=== PATIENT | female | born 1955 | race Caucasian/White ===

== ENCOUNTER → 2017-04-25 | Outpatient (CLI) | payer BC ==
--- NOTE | 2017-04-25 12:26 | XR ---
EXAMINATION TYPE: XR chest 2V DATE OF EXAM: 04/25/2017 COMPARISON: None HISTORY: 61-year-old female with cough TECHNIQUE: Frontal and lateral views FINDINGS: The cardiomediastinal silhouette, aorta, and pulmonary vasculature are within normal limits. There is mild hyperinflation and mild interstitial prominence in the lower lungs. Lungs and pleural spaces ot herwise clear. IMPRESSION: Possible underlying COPD. Clinically correlate. Otherwise, no acute cardiopulmonary process.
== END | disposition home or self-care (01) ==
LOC: RADXRYALE 10:35
PROVIDERS: ATTEND Internal Medicine
DX: R05 Cough (principal)
CPT/HCPCS: 71020

== ENCOUNTER → 2017-04-30 | Outpatient (CLI) | payer BC ==
--- NOTE | 2017-05-01 09:24 | MM ---
Reason for exam: screening (asymptomatic). Last mammogram was performed 1 year ago. History: Patient is postmenopausal. Took estrogen for 7 years beginning at age 42. Took progesterone for 6 months beginning at age 52. Physical Findings: A clinical breast exam by your physician is recommended on an annual basis and results should be correlated with mammographic findings. MG Screening Mammo w CAD Bilateral CC and MLO view(s) were taken. Prior study comparison: April 29, 2016, bilateral MG screening mammo w CAD. The breast tissue is almost entirely fat. No significant changes when compared with prior studies. ASSESSMENT: Negative, BI-RAD 1 RECOMMENDATION: Routine screening mammogram of both breasts in 1 year.
== END | disposition home or self-care (01) ==
LOC: RADMAMWWP 08:19
PROVIDERS: ATTEND Obstetrics & Gynecology
DX: Z12.31 Encounter for screening mammogram for malignant neoplasm of breast (principal)

== ENCOUNTER → 2018-05-07 | Outpatient (CLI) | payer MEDICARE ==
--- NOTE | 2018-05-13 09:05 | MM ---
Reason for exam: screening (asymptomatic). Last mammogram was performed 1 year ago. History: Patient is postmenopausal. Took estrogen for 7 years beginning at age 42. Took progesterone for 6 months beginning at age 52. Physical Findings: A clinical breast exam by your physician is recommended on an annual basis and results should be correlated with mammographic findings. MG Screening Mammo w CAD Bilateral CC and MLO view(s) were taken. Prior study comparison: April 30, 2017, bilateral MG screening mammo w CAD. April 29, 2016, bilateral MG screening mammo w CAD. There are scattered fibroglandular densities. No suspicious abnormality. No significant changes when compared with prior studies. ASSESSMENT: Negative, BI-RAD 1 RECOMMENDATION: Routine screening mammogram of both breasts in 1 year.
== END | disposition home or self-care (01) ==
LOC: RADMAMWWP 06:59
PROVIDERS: ATTEND Obstetrics & Gynecology
DX: Z12.31 Encounter for screening mammogram for malignant neoplasm of breast (principal)
CPT/HCPCS: 77067

== ENCOUNTER → 2019-06-22 | Outpatient (CLI) | payer MEDICARE ==
--- NOTE | 2019-06-22 10:23 | MM ---
Reason for exam: screening (asymptomatic). Last mammogram was performed 1 year and 1 month ago. History: Patient is postmenopausal. Took estrogen for 7 years beginning at age 42. Took progesterone for 6 months beginning at age 52. Physical Findings: A clinical breast exam by your physician is recommended on an annual basis and results should be correlated with mammographic findings. MG 3D Screening Mammo W/Cad Bilateral CC and MLO view(s) were taken. Prior study comparison: May 07, 2018, bilateral MG screening mammo w CAD. April 30, 2017, bilateral MG screening mammo w CAD. There are scattered fibroglandular densities. No suspicious abnormality. No significant changes when compared with prior studies. ASSESSMENT: Negative, BI-RAD 1 RECOMMENDATION: Routine screening mammogram of both breasts in 1 year.
== END | disposition home or self-care (01) ==
LOC: RADMAMWWP 06:52
PROVIDERS: ATTEND Internal Medicine
DX: Z12.31 Encounter for screening mammogram for malignant neoplasm of breast (principal)
CPT/HCPCS: 77063; 77067

== ENCOUNTER → 2020-07-26 | Outpatient (CLI) | payer MEDICARE | END | disposition home or self-care (01) | LOC: LABWHC1 14:51 | PROVIDERS: ATTEND Internal Medicine | DX: Z20.828 Contact with and (suspected) exposure to other viral communicable diseases (principal) | CPT/HCPCS: U0003; C9803 ==

== ENCOUNTER → 2020-08-22 | Outpatient (CLI) | payer MEDICARE ==
--- NOTE | 2020-08-23 10:30 | MM ---
Reason for exam: screening (asymptomatic). Last mammogram was performed 1 year and 2 months ago. History: Patient is postmenopausal. Took estrogen for 7 years beginning at age 42. Took progesterone for 6 months beginning at age 52. Physical Findings: A clinical breast exam by your physician is recommended on an annual basis and results should be correlated with mammographic findings. MG 3D Screening Mammo W/Cad Bilateral CC and MLO view(s) were taken. Prior study comparison: June 22, 2019, bilateral MG 3d screening mammo w/cad. May 07, 2018, bilateral MG screening mammo w CAD. There are scattered fibroglandular densities. There is no discrete abnormality. No significant changes when compared with prior studies. ASSESSMENT: Negative, BI-RAD 1 RECOMMENDATION: Routine screening mammogram of both breasts in 1 year.
== END | disposition home or self-care (01) ==
LOC: RADMAMWWP 07:16
PROVIDERS: ATTEND Internal Medicine
DX: Z12.31 Encounter for screening mammogram for malignant neoplasm of breast (principal)
CPT/HCPCS: 77063; 77067

== ENCOUNTER → 2021-08-27 | Outpatient (CLI) | payer MEDICARE ==
--- NOTE | 2021-08-29 10:00 | MM ---
Reason for exam: screening (asymptomatic). Last mammogram was performed 1 year ago. History: Patient is postmenopausal. Took estrogen for 7 years beginning at age 42. Took progesterone for 6 months beginning at age 52. Physical Findings: A clinical breast exam by your physician is recommended on an annual basis and results should be correlated with mammographic findings. MG Screening Mammo w CAD Bilateral CC and MLO view(s) were taken. Prior study comparison: August 22, 2020, bilateral MG 3d screening mammo w/cad. June 22, 2019, bilateral MG 3d screening mammo w/cad. There are scattered fibroglandular densities. Benign appearing calcifications in the left breast. No significant changes when compared with prior studies. ASSESSMENT: Benign, BI-RAD 2 RECOMMENDATION: Routine screening mammogram of both breasts in 1 year.
== END | disposition home or self-care (01) ==
LOC: RADMAMWWP 08:01
PROVIDERS: ATTEND Internal Medicine
DX: Z12.31 Encounter for screening mammogram for malignant neoplasm of breast (principal); Z78.0 Asymptomatic menopausal state
CPT/HCPCS: 77067

== ENCOUNTER → 2022-08-30 | Outpatient (CLI) | payer MEDICARE ==
--- NOTE | 2022-09-02 10:40 | MM ---
Reason for Exam: Screening (asymptomatic). Last screening mammogram was performed 12 month(s) ago. Patient History: Menarche at age 10. First Full-Term at age 19. Hysterectomy at age 26. Postmenopausal. Estrogen for 7 years from age 42 until age 49. Progesterone for 6 months starting at age 52. Risk Values: [place] 5 year model risk: 1.5%. NCI Lifetime model risk: 4.8%. Prior Study Comparison: 04/29/2016 Bilateral Screening Mammogram, [facility]. 04/30/2017 Bilateral Screening Mammogram, [facility]. 05/07/2018 Bilateral Screening Mammogram, [facility]. 06/22/2019 Bilateral Screening Mammogram, [facility]. 08/22/2020 Bilateral Screening Mammogram, [facility]. 08/27/2021 Bilateral Screening Mammogram, [facility]. Tissue Density: The breast tissue is almost entirely fat. Findings: Analyzed By CAD. There is no suspicious group of microcalcifications or new suspicious mass in either breast. Overall Assessment: Negative, BI-RAD 1 Management: Screening Mammogram of both breasts in 1 year. A clinical breast exam by your physician is recommended on an annual basis and results should be correlated with mammographic findings. [facility] will attempt to contact patient to return for supplemental views and ultrasound if indicated. Electronically signed and approved by: Salvatore Dasilva DO
== END | disposition home or self-care (01) ==
LOC: RADMAMWWP 07:39
PROVIDERS: ATTEND Internal Medicine
DX: Z12.31 Encounter for screening mammogram for malignant neoplasm of breast (principal); Z78.0 Asymptomatic menopausal state
CPT/HCPCS: 77063; 77067

== ENCOUNTER → 2023-09-03 | Outpatient (CLI) | payer MEDICARE ==
--- NOTE | 2023-09-03 15:38 | BD ---
EXAMINATION TYPE: Axial Bone Density DATE OF EXAM: 09/03/2023 CLINICAL HISTORY: 68 years old Female. ICD-10 CODE: N95.8 OTHER SPECIFIED MENOPAUSAL Height: 66" Weight: 136.9lbs FRAX RISK QUESTIONS: Alcohol (3 or more units per day): No Family History (Parent hip fracture): No Glucocorticoids (More than 3mos): No (Ex: prednisone, prednisolone, methylprednisolone, dexamethasone, and hydrocortisone). History of Fracture in Adulthood: Yes, ankle Secondary Osteoporosis: 1. Type 1 Diabetes: No 2. Hyperthyroidism: No 3. Menopause before 45: Yes, 26 4. Malnutrition: No 5. Chronic liver disease: No Rheumatoid Arthritis: No Current Tobacco Use: No RISK FACTORS HISTORY OF: Hip Fracture (Right/Left): No Spine Fracture: No History of Wrist Fracture: No Surgery to Spine/Hip(right/left)/Wrist (right/left): No Family History of Osteoporosis: Yes, mother Active: Yes Diet low in dairy products/other sources of calcium: Yes Postmenopausal woman: Yes Lost more than 2 inches in height since high school: Yes Frequent falls: No Poor Health: No Hyperparathyroidism: No Adrenal Insufficiency: No MEDICATIONS: Prednisone or other steroids: No Thyroid Medications: No Osteoporosis Medications: No Additional Medications: Celexa, Statin for cholesterol, vitamin D, multivitamin daily Additional History: None EXAM MEASUREMENTS: Bone mineral densitometry was performed using the [employer]. Bone mineral density as measured about the Lumbar spine is: ----- L1-L4(G/cm2): 1.227 T Score Values are as follows: ----- L1: 0.9 ----- L2: -0.9 ----- L3: 1.0 ----- L4: 0.3 ----- L1-L4: 0.4 Z Score Values are as follows: ----- L1: 2.7 ----- L2: 0.9 ----- L3: 2.8 ----- L4: 2.1 ----- L1-L4: 2.2 Baseline @MPH Bone mineral density about the R hip (g/cm2): 0.809 Bone mineral density about the L hip (g/cm2): 0.814 T Score values are as follows: -----R Neck: -1.9 -----L Neck: -1.7 -----R Total: -1.6 -----L Total: -1.5 Z Score values are as follows: -----R Neck: -0.2 -----L Neck: 0.1 -----R Total: 0.0 -----L Total: 0.0 Baseline @MPH FRAX%s: The graph provided illustrates a 17.1% chance for a major osteoporotic fx and a 3.3% chance f or the hips probability for fx in 10 years time. IMPRESSION: Osteopenia (T Score between -2.5 and -1). There is slightly increased risk of fracture and the patient may be considered for treatment. Re-Screen 2-5 years. NOTE: T-SCORE=SD OF THE YOUNG ADULT MEAN.
--- NOTE | 2023-09-05 08:50 | MM ---
Reason for Exam: Screening (asymptomatic). Last screening mammogram was performed 12 month(s) ago. Patient History: Menarche at age 10. First Full-Term at age 19. Hysterectomy at age 26. Postmenopausal. Estrogen for 7 years from age 42 until age 49. Progesterone for 6 months starting at age 52. Risk Values: [place] 5 year model risk: 1.5%. NCI Lifetime model risk: 4.5%. Prior Study Comparison: 08/22/2020 Bilateral Screening Mammogram, [facility]. 08/27/2021 Bilateral Screening Mammogram, [facility]. 08/30/2022 Bilateral MG 3D screening mammo w/cad, [facility]. Tissue Density: There are scattered fibroglandular densities. Findings: Analyzed By CAD. There is no suspicious group of microcalcifications or new suspicious mass in either breast. Overall Assessment: Negative, BI-RAD 1 Management: Screening Mammogram of both breasts in 1 year. . Patient should continue monthly self-breast exams. A clinical breast exam by your physician is recommended on an annual basis. This exam should not preclude additional follow-up of suspicious palpable abnormalities. Note on [place] scores and lifetime risk: 1. A [place] score greater than 3% is considered moderate risk. If this is the case, consider specialist referral to assess eligibility for a risk reducing agent. 2. If overall lifetime risk for the development of breast cancer is 20% or higher, the patient may qualify for future screening with alternating mammogram and breast MRI. Electronically signed and approved by: Chris Mazariegos M.D. Radiologis
== END | disposition home or self-care (01) ==
LOC: RADMAMWWP 07:03
PROVIDERS: ATTEND Internal Medicine
DX: Z12.31 Encounter for screening mammogram for malignant neoplasm of breast (principal); M85.89 Other specified disorders of bone density and structure, multiple sites; N95.8 Other specified menopausal and perimenopausal disorders; Z78.0 Asymptomatic menopausal state
CPT/HCPCS: 77063; 77067; 77080

== ENCOUNTER → 2024-09-06 | Outpatient (CLI) | payer MEDICARE ==
--- NOTE | 2024-09-07 18:11 | MM ---
Reason for Exam: Screening (asymptomatic). Last screening mammogram was performed 12 month(s) ago. Patient History: Menarche at age 10. First Full-Term at age 19. Hysterectomy at age 26. Postmenopausal. Estrogen for 7 years from age 42 until age 49. Progesterone for 6 months starting at age 52. Risk Values: [place] 5 year model risk: 1.6%. NCI Lifetime model risk: 4.3%. Prior Study Comparison: 08/27/2021 Bilateral Screening Mammogram, [facility]. 08/30/2022 Bilateral MG 3D screening mammo w/cad, [facility]. 09/03/2023 Bilateral MG 3D screening mammo w/cad, [facility]. Tissue Density: There are scattered areas of fibroglandular density. Findings: Analyzed By CAD. New density with associated calcification anterior 12:00 left breast. Magnification views recommended to better characterize. Otherwise, no significant change. Overall Assessment: Incomplete: need additional imaging evaluation, BI-RAD 0 Management: Special View Mammogram of the left breast. . [facility] will attempt to contact patient to return for supplemental views. [facility], , 09/07/2024 6:07 PM. Electronically signed and approved by: Marie Fletcher M.D. Radiologist
== END | disposition home or self-care (01) ==
LOC: RADMAMWWP 08:11
PROVIDERS: ATTEND Internal Medicine
DX: Z12.31 Encounter for screening mammogram for malignant neoplasm of breast (principal); Z78.0 Asymptomatic menopausal state; R92.323 Mammographic fibroglandular density, bilateral breasts
CPT/HCPCS: 77067

== ENCOUNTER → 2024-09-16 | Outpatient (CLI) | payer MEDICARE ==
--- NOTE | 2024-09-16 11:02 | MM ---
Reason for Exam: Additional evaluation requested from abnormal screening. Last screening mammogram was performed less than 1 month ago. Patient History: Menarche at age 10. First Full-Term at age 19. Hysterectomy at age 26. Postmenopausal. Estrogen for 7 years from age 42 until age 49. Progesterone for 6 months starting at age 52. Risk Values: [place] 5 year model risk: 1.6%. NCI Lifetime model risk: 4.3%. Prior Study Comparison: 08/30/2022 Bilateral MG 3D screening mammo w/cad, [facility]. 09/03/2023 Bilateral MG 3D screening mammo w/cad, [facility]. 09/06/2024 Bilateral MG screening mammo w CAD, [facility]. Tissue Density: Left: There are scattered areas of fibroglandular density. Findings: Analyzed By CAD. There is an oval 6 mm nodule superficial within the 12:00 left breast with heterogeneous calcifications, possible fat necrosis calcification. Overall Assessment: Incomplete: need additional imaging evaluation, BI-RAD 0 Management: Diagnostic Breast Ultrasound of the left breast. [facility], , 09/16/2024 10:59 AM. Electronically signed and approved by: Marie Fletcher M.D. Radiologist
--- NOTE | 2024-09-16 11:48 | USB ---
Reason for Exam: Additional evaluation requested from abnormal screening. Patient History: Menarche at age 10. First Full-Term at age 19. Hysterectomy at age 26. Postmenopausal. Estrogen for 7 years from age 42 until age 49. Progesterone for 6 months starting at age 52. Risk Values: [place] 5 year model risk: 1.6%. NCI Lifetime model risk: 4.3%. Technique: Method: Targeted. Prior Study Comparison: 08/30/2022 Bilateral MG 3D screening mammo w/cad, [facility]. 09/03/2023 Bilateral MG 3D screening mammo w/cad, [facility]. 09/06/2024 Bilateral MG screening mammo w CAD, [facility]. Findings: The upper section of the breast of the left breast, the axilla of the left breast and the retroareolar of the left breast were scanned. Targeted ultrasound superior aspect 10 to 1:00 position. At the 11:00 position just deep to the skin surface and 2 cm from the nipple, there is a vague heterogeneous isoechoic area measuring 5 x 4 x 4 mm showing focal posterior shadowing. Likely mammographic correlate. This may represent a small area of fat necrosis and the area can be reassessed by mammogram in 6 months. Overall Assessment: Probably benign, BI-RAD 3 Management: Diagnostic Mammogram of the left breast in 6 months. A clinical breast exam by your physician is recommended on an annual basis and results should be correlated with mammographic findings. This exam should not preclude additional follow-up of suspicious palpable abnormalities. Results were given to the patient verbally at the time of exam. [facility], , 09/16/2024 11:45 AM. Electronically signed and approved by: Marie Fletcher M.D. Radiologist
== END | disposition home or self-care (01) ==
LOC: RADMAMWWP 10:27
PROVIDERS: ATTEND Internal Medicine
DX: R92.8 Other abnormal and inconclusive findings on diagnostic imaging of breast (principal); Z78.0 Asymptomatic menopausal state; R92.322 Mammographic fibroglandular density, left breast; N63.20 Unspecified lump in the left breast, unspecified quadrant
CPT/HCPCS: 77065; 76642; G0279; 77061

== ENCOUNTER → 2025-03-21 | Outpatient (CLI) | payer MEDICARE ==
--- NOTE | 2025-03-21 08:21 | MM ---
Reason for Exam: Follow-up at short interval from prior study. Last screening mammogram was performed 7 month(s) ago. Patient History: Menarche at age 10. First Full-Term at age 19. Hysterectomy at age 26. Postmenopausal. Estrogen for 7 years from age 42 until age 49. Progesterone for 6 months starting at age 52. Risk Values: [place] 5 year model risk: 1.6%. NCI Lifetime model risk: 4.3%. Prior Study Comparison: 09/03/2023 Bilateral MG 3D screening mammo w/cad, [facility]. 09/06/2024 Bilateral MG screening mammo w CAD, [facility]. 09/16/2024 Left MG 3D work up w/cad , [facility]. Tissue Density: Left: There are scattered areas of fibroglandular density. Findings: Analyzed By CAD. Single benign appearing calcification at the area of prior mammogram concern identified. No suspicious new mass or distortion left breast. Overall Assessment: Benign, BI-RAD 2 Management: Screening Mammogram of both breasts in 6 months. Return to routine follow-up. Results were given to the patient verbally at the time of exam. Patient should continue monthly self-breast exams. A clinical breast exam by your physician is recommended on an annual basis. This exam should not preclude additional follow-up of suspicious palpable abnormalities. Note on [place] scores and lifetime risk: 1. A [place] score greater than 3% is considered moderate risk. If this is the case, consider specialist referral to assess eligibility for a risk reducing agent. 2. If overall lifetime risk for the development of breast cancer is 20% or higher, the patient may qualify for future screening with alternating mammogram and breast MRI. [facility], , 03/21/2025 8:18 AM. Electronically signed and approved by: Srinivas Umaña M.D.
== END | disposition home or self-care (01) ==
LOC: RADMAMWWP 07:57
PROVIDERS: ATTEND Internal Medicine
DX: R92.8 Other abnormal and inconclusive findings on diagnostic imaging of breast (principal); R92.323 Mammographic fibroglandular density, bilateral breasts; Z78.0 Asymptomatic menopausal state
CPT/HCPCS: 77065; G0279; 77061